=== PATIENT | male | born 1940 | race Hispanic/Latino ===

== ENCOUNTER 2021-06-20 21:04 | Inpatient (IN) | payer MEDICARE ==
[2021-06-20 22:05] VITALS: BMI 30.6
[2021-06-20] MEDS ORDERED: Dextrose 50% Abboject 50 ML SYRINGE SLOW IVP PRN (23:25)
[2021-06-20] MEDS ORDERED: Acetaminophen 325 MG TAB PO PRN (23:25)
[2021-06-20] MEDS ORDERED: HumaLOG 300 UNITS/3 ML VIAL SC PRN (23:25)
[2021-06-20] MEDS ORDERED: Ondansetron PF 4 MG/2 ML Vial IVP PRN (23:25)
[2021-06-20] MEDS ORDERED: Calcium Carbonate 500 MG ChewTAB PO PRN (23:25)
[2021-06-20] MEDS ORDERED: Dextrose 5% in Water 1,000 ML IV PRN (23:25)
[2021-06-20] MEDS ORDERED: Guaifenesin DM 100-10/5 ML UDCUP PO PRN (23:25)
[2021-06-20] MEDS ORDERED: Senokot S 8.6-50 MG TAB PO PRN (23:25)
[2021-06-20] MEDS ORDERED: Lactated Ringer's 1,000 ML IV SCH (23:30)
[2021-06-20] MEDS ORDERED: Pantoprazole 40 MG VIAL IVP SCH (23:45)
[2021-06-21 00:01] LABS: #Eosinphils 0.1 10x3/uL (0.0-0.5); #Monocytes 0.5 10x3/uL (0.0-1.1); #Neutrophils 3.7 10x3/uL (1.5-8.4); %Basophils 0.4 % (0.0-2.0); %Eosinophils 1.8 % (0.0-6.0); %Lymphocytes 22.8 % (18.0-47.0); %Monocytes 8.9 % (0.0-10.0); %Neutrophils 65.7 % (40.0-75.0); Hemoglobin 7.8 g/dL (13.5-17.5); Mean Corpuscular HGB CONC 32.5 g/dL (32.0-36.0); Mean Corpuscular Hemoglobin 29.1 pg (27.0-33.0); Mean Corpuscular Volume 89.6 fl (81.2-95.1); Mean Platelet Volume 9.5 fl (7.4-10.4); Platelet Count 160 10x3/uL (150-450); RBC Distribution Width 13.1 % (11.5-14.5); Red Blood Cell (RBC) Count 2.68 10x6/uL (4.32-5.72); White Blood Cell (WBC) Count 5.6 10x3/uL (3.5-10.5)
[2021-06-21 04:59] LABS: #Eosinphils 0.1 10x3/uL (0.0-0.5); #Monocytes 0.6 10x3/uL (0.0-1.1); #Neutrophils 3.8 10x3/uL (1.5-8.4); %Basophils 0.3 % (0.0-2.0); %Lymphocytes 26.4 % (18.0-47.0); %Monocytes 9.4 % (0.0-10.0); %Neutrophils 61.6 % (40.0-75.0); Hemoglobin 8.1 g/dL (13.5-17.5); Mean Corpuscular HGB CONC 33.1 g/dL (32.0-36.0); Mean Corpuscular Hemoglobin 29.3 pg (27.0-33.0); Mean Corpuscular Volume 88.8 fl (81.2-95.1); Mean Platelet Volume 10.4 fl (7.4-10.4); Platelet Count 171 10x3/uL (150-450); RBC Distribution Width 13.2 % (11.5-14.5); Red Blood Cell (RBC) Count 2.76 10x6/uL (4.32-5.72); White Blood Cell (WBC) Count 6.1 10x3/uL (3.5-10.5)
[2021-06-21 05:11] LABS: Anion Gap 11 mmol/L (10-20); BUN (Urea Nitrogen) 7 mg/dL (8.4-25.7); Calc. Creatinine Clearance 73 mL/min (70-130); Calcium 8.5 mg/dL (7.8-10.44); Carbon Dioxide 24 mmol/L (23-31); Chloride 109 mmol/L (98-107); Glucose 115 mg/dL (83-110); Iron 24 ug/dL (65-175); Iron Binding Capacity, Total 324 mcg/dL (261-462); Potassium 3.7 mmol/L (3.5-5.1); Sodium 140 mmol/L (136-145)
[2021-06-21 05:14] LABS: Ferritin 14.12 ng/mL (22-322)
[2021-06-21] MEDS ORDERED: Carvedilol 6.25 MG TAB PO SCH (08:00)
[2021-06-21] MEDS ORDERED: Ferrous Sulfate 325 MG TAB PO SCH (08:00)
[2021-06-21] MEDS ORDERED: Losartan 25 MG TAB PO SCH (09:00)
[2021-06-21] MEDS ORDERED: FLUoxetine HCl 20 MG CAP PO SCH (09:00)
[2021-06-21] MEDS ORDERED: Pantoprazole 40 MG VIAL IVP SCH (09:00)
[2021-06-21] MEDS ORDERED: FLU VACC QS2021-22(65YR UP)/PF 240 MCG/0.7 ML SYRINGE IM ONE (09:00)
[2021-06-21] MEDS ORDERED: Carvedilol 3.125 MG TAB PO SCH ×2 (10:15→17:00)
[2021-06-21 10:32] LABS: #Eosinphils 0.1 10x3/uL (0.0-0.5); #Monocytes 0.5 10x3/uL (0.0-1.1); #Neutrophils 3.3 10x3/uL (1.5-8.4); %Basophils 0.4 % (0.0-2.0); %Eosinophils 2.3 % (0.0-6.0); %Lymphocytes 24.7 % (18.0-47.0); %Monocytes 8.9 % (0.0-10.0); %Neutrophils 63.3 % (40.0-75.0); Hemoglobin 7.8 g/dL (13.5-17.5); Mean Corpuscular HGB CONC 32.6 g/dL (32.0-36.0); Mean Corpuscular Hemoglobin 29.1 pg (27.0-33.0); Mean Corpuscular Volume 89.2 fl (81.2-95.1); Platelet Count 156 10x3/uL (150-450); Red Blood Cell (RBC) Count 2.68 10x6/uL (4.32-5.72); White Blood Cell (WBC) Count 5.2 10x3/uL (3.5-10.5)
[2021-06-21 12:50] VITALS: BP 119/58; TEMP 98.6
[2021-06-21] MEDS ORDERED: metroNIDAZOLE 500 MG TAB PO SCH (15:00)
[2021-06-21] MEDS ORDERED: Atorvastatin Calcium 20 MG TAB PO SCH (21:00)
[2021-06-21] MEDS ORDERED: Tamsulosin HCl 0.4 MG CAP PO SCH (21:00)
[2021-06-21] MEDS ORDERED: Gabapentin 300 MG CAP PO SCH (21:00)
== END 2021-06-21 17:25 | disposition home or self-care (01) | DRG 378 ==
LOC: CSHTELE 21:04
PROVIDERS: ADMIT Internal Medicine; ATTEND Family Medicine
DX: K57.93 Diverticulitis of intestine, part unspecified, without perforation or abscess with bleeding (principal); D62 Acute posthemorrhagic anemia; F03.90 Unspecified dementia, unspecified severity, without behavioral disturbance, psychotic disturbance, mood disturbance, and anxiety; Z20.822 Contact with and (suspected) exposure to COVID-19; E11.22 Type 2 diabetes mellitus with diabetic chronic kidney disease; I10 Essential (primary) hypertension; E78.5 Hyperlipidemia, unspecified; E11.65 Type 2 diabetes mellitus with hyperglycemia; N18.2 Chronic kidney disease, stage 2 (mild); E86.0 Dehydration; Z79.899 Other long term (current) drug therapy; Z87.891 Personal history of nicotine dependence
CPT/HCPCS: 36415; 36416; 80048; 82607; 82728; 82746; 83540; 83550; 85025; 93005; 93010; C9113; J1815; J7120

== ENCOUNTER 2021-11-29 22:33 | Emergency (ER) | payer MEDICARE, OTHER ==
[2021-11-29 23:12] LABS: #Eosinphils 0.1 10x3/uL (0.0-0.5); #Monocytes 0.5 10x3/uL (0.0-1.1); #Neutrophils 3.7 10x3/uL (1.5-8.4); %Basophils 0.3 % (0.0-2.0); %Eosinophils 1.7 % (0.0-6.0); %Lymphocytes 24.3 % (18.0-47.0); %Monocytes 9.2 % (0.0-10.0); %Neutrophils 64.2 % (40.0-75.0); Hemoglobin 9.9 g/dL (13.5-17.5); Mean Corpuscular HGB CONC 30.2 g/dL (32.0-36.0); Mean Corpuscular Volume 79.6 fl (81.2-95.1); Mean Platelet Volume 9.6 fl (7.4-10.4); Platelet Count 157 10x3/uL (150-450); RBC Distribution Width 17.4 % (11.5-14.5); Red Blood Cell (RBC) Count 4.12 10x6/uL (4.32-5.72); White Blood Cell (WBC) Count 5.8 10x3/uL (3.5-10.5)
[2021-11-29 23:23] LABS: ALT (SGPT) 14 U/L (8-55); AST (SGOT) 12 U/L (5-34); Albumin 3.9 g/dL (3.4-4.8); Alkaline Phosphatase 120 U/L (40-110); Anion Gap 14 mmol/L (10-20); BUN (Urea Nitrogen) 17 mg/dL (8.4-25.7); Bilirubin, Total 0.2 mg/dL (0.2-1.2); Calc. Creatinine Clearance 0 mL/min (70-130); Calcium 9.1 mg/dL (7.8-10.44); Carbon Dioxide 23 mmol/L (23-31); Chloride 103 mmol/L (98-107); Estimated GFR 47; Globulin 3.4 g/dL (2.4-3.5); Glucose 178 mg/dL (83-110); Potassium 4.2 mmol/L (3.5-5.1); Protein, Total 7.3 g/dL (5.8-8.1); Sodium 136 mmol/L (136-145)
== END 2021-11-29 23:52 | disposition home or self-care (01) ==
LOC: CSHERS 22:33
DX: R07.9 Chest pain, unspecified (principal); E11.9 Type 2 diabetes mellitus without complications; E78.5 Hyperlipidemia, unspecified; E78.00 Pure hypercholesterolemia, unspecified; I10 Essential (primary) hypertension; Z86.73 Personal history of transient ischemic attack (TIA), and cerebral infarction without residual deficits; K21.9 Gastro-esophageal reflux disease without esophagitis; Z87.891 Personal history of nicotine dependence; Z79.899 Other long term (current) drug therapy; Z79.84 Long term (current) use of oral hypoglycemic drugs; Z79.82 Long term (current) use of aspirin
CPT/HCPCS: 36415; 71045; 80053; 84484; 85025; 93005

== ENCOUNTER 2023-03-04 16:41 | Inpatient (IN) | payer MEDICARE, OTHER ==
[2023-03-04] MEDS ORDERED: Morphine 4 MG/ML VIAL ONE (17:57)
[2023-03-04] MEDS ORDERED: Ondansetron PF 4 MG/2 ML Vial ONE (17:58)
[2023-03-04 18:01] LABS: #Monocytes 0.9 10x3/uL (0.0-1.1); #Neutrophils 8.3 10x3/uL (1.5-8.4); %Basophils 0.2 % (0.0-2.0); %Eosinophils 0.2 % (0.0-6.0); %Monocytes 9.4 % (0.0-10.0); %Neutrophils 84.8 % (40.0-75.0); Hematocrit 46.4 % (38.8-50.0); Hemoglobin 15.3 g/dL (13.5-17.5); Mean Corpuscular Hemoglobin 28.4 pg (27.0-33.0); Mean Corpuscular Volume 86.1 fl (81.2-95.1); Mean Platelet Volume 11.1 fl (7.4-10.4); Platelet Count 163 10x3/uL (150-450); RBC Distribution Width 15.8 % (11.5-14.5); Red Blood Cell (RBC) Count 5.39 10x6/uL (4.32-5.72); White Blood Cell (WBC) Count 9.8 10x3/uL (3.5-10.5)
[2023-03-04 18:14] LABS: ALT (SGPT) 23 U/L (8-55); AST (SGOT) 23 U/L (5-34); Albumin 4.8 g/dL (3.4-4.8); Alkaline Phosphatase 103 U/L (40-110); Anion Gap 17 mmol/L (10-20); BUN (Urea Nitrogen) 38 mg/dL (8.4-25.7); Bilirubin, Total 0.4 mg/dL (0.2-1.2); Calc. Creatinine Clearance 0 mL/min (70-130); Calcium 8.7 mg/dL (7.8-10.44); Carbon Dioxide 13 mmol/L (23-31); Chloride 108 mmol/L (98-107); Estimated GFR 21; Globulin 3.5 g/dL (2.4-3.5); Glucose 191 mg/dL (83-110); Lipase 17 U/L (8-78); Magnesium 1.9 mg/dL (1.6-2.6); Potassium 4.3 mmol/L (3.5-5.1); Protein, Total 8.3 g/dL (5.8-8.1); Sodium 134 mmol/L (136-145)
[2023-03-04 18:20] LABS: Troponin I 0.014 ng/mL (< 0.028)
[2023-03-04] MEDS ORDERED: HumaLOG 300 UNITS/3 ML VIAL SC PRN (20:25)
[2023-03-04] MEDS ORDERED: Dextrose 5% in Water 1,000 ML IV PRN (20:25)
[2023-03-04] MEDS ORDERED: Dextrose 50% Abboject 50 ML SYRINGE SLOW IVP PRN (20:25)
[2023-03-04] MEDS ORDERED: Glucagon 1 MG/ML KIT IM PRN (20:25)
[2023-03-04] MEDS: Sodium Chloride 0.9% 1,000 ML IV SCH (22:44)
[2023-03-04] MEDS: Gabapentin 300 MG CAP PO SCH (22:45)
[2023-03-04 23:37] VITALS: BMI 27.1
[2023-03-04] MEDS ORDERED: Ondansetron PF 4 MG/2 ML Vial IVP SCH (23:45)
[2023-03-05] MEDS ORDERED: QUEtiapine 25 MG TAB PO SCH (03:00)
[2023-03-05 04:08] LABS: #Monocytes 0.8 10x3/uL (0.0-1.1); %Basophils 0.2 % (0.0-2.0); %Eosinophils 0.2 % (0.0-6.0); %Lymphocytes 5.8 % (18.0-47.0); %Monocytes 8.3 % (0.0-10.0); %Neutrophils 84.6 % (40.0-75.0); Hematocrit 41.6 % (38.8-50.0); Hemoglobin 13.6 g/dL (13.5-17.5); Mean Corpuscular HGB CONC 32.7 g/dL (32.0-36.0); Mean Corpuscular Hemoglobin 28.3 pg (27.0-33.0); Mean Corpuscular Volume 86.5 fl (81.2-95.1); Mean Platelet Volume 10.5 fl (7.4-10.4); Platelet Count 136 10x3/uL (150-450); RBC Distribution Width 15.9 % (11.5-14.5); Red Blood Cell (RBC) Count 4.81 10x6/uL (4.32-5.72); White Blood Cell (WBC) Count 9.4 10x3/uL (3.5-10.5)
[2023-03-05 04:18] LABS: Anion Gap 14 mmol/L (10-20); BUN (Urea Nitrogen) 37 mg/dL (8.4-25.7); Calc. Creatinine Clearance 32 mL/min (70-130); Calcium 8.3 mg/dL (7.8-10.44); Carbon Dioxide 16 mmol/L (23-31); Chloride 112 mmol/L (98-107); Estimated GFR 34; Glucose 172 mg/dL (83-110); Magnesium 1.8 mg/dL (1.6-2.6); Sodium 138 mmol/L (136-145)
[2023-03-05] MEDS: Sodium Chloride 0.9% 1,000 ML IV SCH ×3 (06:37→21:01)
[2023-03-05] MEDS ORDERED: metFORMIN 500 MG TAB PO SCH (09:00)
[2023-03-05] MEDS ORDERED: FLU VACC QS2023(65UP)/MF59C/PF 60 MCG/0.5 ML SYRINGE IM ONE (09:00)
[2023-03-05 09:54] LABS: Bilirubin Neg (Negative); Blood, Urine Negative (Negative); Clarity Clear (Clear); Glucose, Urine (Dipstick) 100 mg/dL (Negative); Ketone, Urine Negative (Negative); Leukocyte Negative (Negative); Nitrite Negative (Negative); Protein, Urine (Dipstick) 30 mg/dl (Neg-Trace); Urobilinogen Normal mg/dL (Less than 2)
[2023-03-05] MEDS: FLUoxetine HCl 20 MG CAP PO SCH (09:59)
[2023-03-05] MEDS: Losartan 25 MG TAB PO SCH (09:59)
[2023-03-05] MEDS: Aspirin Chewable 81 MG TAB PO SCH (09:59)
[2023-03-05] MEDS: Atorvastatin Calcium 40 MG TAB PO SCH (09:59)
[2023-03-05] MEDS: Carvedilol 3.125 MG TAB PO SCH ×2 (09:59→17:00)
[2023-03-05] MEDS: Cholecalciferol 1,000 UNITS (25 MCG) TAB PO SCH (10:00)
[2023-03-05 10:01] LABS: Bacteria/HPF 1+ HPF (None Seen); CAUTI Indications for Culture Pelvic or flank pain; RBC/HPF None Seen HPF (0-3); Squamous Epithelial 0-3 HPF (0-3); WBC/HPF 0-3 HPF (0-3)
[2023-03-05 10:02] LABS: Urine Culture Reflex No No
[2023-03-05] MEDS: Gabapentin 300 MG CAP PO SCH (20:59)
[2023-03-05] MEDS ORDERED: Loperamide HCl 2 MG CAP PO SCH (22:15)
[2023-03-06] MEDS: Carvedilol 3.125 MG TAB PO SCH (08:12)
[2023-03-06 09:00] LABS: #Monocytes 0.5 10x3/uL (0.0-1.1); #Neutrophils 5.1 10x3/uL (1.5-8.4); %Basophils 0.2 % (0.0-2.0); %Eosinophils 0.5 % (0.0-6.0); %Lymphocytes 10.2 % (18.0-47.0); %Monocytes 8.3 % (0.0-10.0); %Neutrophils 80.5 % (40.0-75.0); Hematocrit 40.7 % (38.8-50.0); Hemoglobin 13.2 g/dL (13.5-17.5); Mean Corpuscular HGB CONC 32.4 g/dL (32.0-36.0); Mean Corpuscular Hemoglobin 28.4 pg (27.0-33.0); Mean Corpuscular Volume 87.7 fl (81.2-95.1); Mean Platelet Volume 10.7 fl (7.4-10.4); Platelet Count 122 10x3/uL (150-450); Red Blood Cell (RBC) Count 4.64 10x6/uL (4.32-5.72); White Blood Cell (WBC) Count 6.3 10x3/uL (3.5-10.5)
[2023-03-06 09:48] LABS: Anion Gap 11 mmol/L (10-20); BUN (Urea Nitrogen) 27 mg/dL (8.4-25.7); Calc. Creatinine Clearance 52 mL/min (70-130); Calcium 8.5 mg/dL (7.8-10.44); Carbon Dioxide 14 mmol/L (23-31); Chloride 114 mmol/L (98-107); Estimated GFR 61; Glucose 127 mg/dL (83-110); Potassium 3.7 mmol/L (3.5-5.1); Sodium 135 mmol/L (136-145)
[2023-03-06] MEDS: Atorvastatin Calcium 40 MG TAB PO SCH (10:21)
[2023-03-06] MEDS: Aspirin Chewable 81 MG TAB PO SCH (10:21)
[2023-03-06] MEDS: Losartan 25 MG TAB PO SCH (10:22)
[2023-03-06] MEDS: FLUoxetine HCl 20 MG CAP PO SCH (10:22)
[2023-03-06] MEDS: Cholecalciferol 1,000 UNITS (25 MCG) TAB PO SCH (10:22)
[2023-03-06 12:46] VITALS: BP 107/63; TEMP 98.1
== END 2023-03-06 14:00 | disposition home or self-care (01) | DRG 683 ==
LOC: CSHERS 16:41 → CSHTELE 19:42 → OBSVTOIN 03-05 15:52
PROVIDERS: ADMIT Family Medicine; ATTEND Hospitalist
DX: N17.9 Acute kidney failure, unspecified (principal); E87.20 Acidosis, unspecified; F03.90 Unspecified dementia, unspecified severity, without behavioral disturbance, psychotic disturbance, mood disturbance, and anxiety; N26.1 Atrophy of kidney (terminal); I10 Essential (primary) hypertension; E11.40 Type 2 diabetes mellitus with diabetic neuropathy, unspecified; E78.5 Hyperlipidemia, unspecified; Z88.0 Allergy status to penicillin; Z79.899 Other long term (current) drug therapy; Z79.82 Long term (current) use of aspirin; Z87.891 Personal history of nicotine dependence; Z80.3 Family history of malignant neoplasm of breast; Z82.49 Family history of ischemic heart disease and other diseases of the circulatory system; Z83.3 Family history of diabetes mellitus
CPT/HCPCS: 36415; 36416; 74176; 80048; 80053; 81001; 83690; 83735; 84484; 85025; 93005; J1650; J1815; J2270; J2405; J7050

== ENCOUNTER 2023-08-26 16:24 | Observation (INO) | payer OTHER ==
[2023-08-26 17:13] LABS: ALT (SGPT) 23 U/L (8-55); AST (SGOT) 20 U/L (5-34); Albumin 3.7 g/dL (3.4-4.8); Alkaline Phosphatase 111 U/L (40-110); Anion Gap 10 mmol/L (10-20); BUN (Urea Nitrogen) 19 mg/dL (8.4-25.7); Bilirubin, Total 0.3 mg/dL (0.2-1.2); Calc. Creatinine Clearance 0 mL/min (70-130); Carbon Dioxide 25 mmol/L (23-31); Chloride 105 mmol/L (98-107); Estimated GFR 65; Globulin 3.5 g/dL (2.4-3.5); Glucose 143 mg/dL (83-110); Protein, Total 7.2 g/dL (5.8-8.1); Sodium 136 mmol/L (136-145)
[2023-08-26 17:15] LABS: #Basophils 0.02 10x3/uL (0.0-0.2); #Eosinphils 0.09 10x3/uL (0.0-0.5); #Monocytes 0.64 10x3/uL (0.0-1.1); #Neutrophils 4.04 10x3/uL (1.5-8.4); %Basophils 0.3 % (0.0-2.0); %Eosinophils 1.4 % (0.0-6.0); %Lymphocytes 24.3 % (18.0-47.0); %Monocytes 10.1 % (0.0-10.0); %Neutrophils 63.6 % (40.0-75.0); Hemoglobin 12.5 g/dL (13.5-17.5); Mean Corpuscular HGB CONC 33.8 g/dL (32.0-36.0); Mean Corpuscular Hemoglobin 30.2 pg (27.0-33.0); Mean Corpuscular Volume 89.4 fl (81.2-95.1); Mean Platelet Volume 10.8 fl (7.4-10.4); Platelet Count 146 10x3/uL (150-450); RBC Distribution Width 13.8 % (11.5-14.5); Red Blood Cell (RBC) Count 4.14 10x6/uL (4.32-5.72); White Blood Cell (WBC) Count 6.4 10x3/uL (3.5-10.5)
[2023-08-26 18:12] LABS: Bilirubin Neg (Negative); Blood, Urine Negative (Negative); Clarity Clear (Clear); Glucose, Urine (Dipstick) 100 mg/dL (Negative); Ketone, Urine Negative (Negative); Leukocyte Negative (Negative); Nitrite Negative (Negative); Protein, Urine (Dipstick) 15 mg/dl (Neg-Trace); Urobilinogen Normal mg/dL (Less than 2)
[2023-08-26] MEDS ORDERED: Aspirin 325 MG TAB ONE (18:13)
[2023-08-26 18:29] LABS: Bacteria/HPF Rare-Few HPF (None Seen); CAUTI Indications for Culture Alt mental st,lethar; RBC/HPF 0-3 HPF (0-3); Squamous Epithelial None Seen HPF (0-3); WBC/HPF 0-3 HPF (0-3)
[2023-08-26 18:30] LABS: Urine Culture Reflex No No
[2023-08-26 20:56] VITALS: BMI 29.9
[2023-08-26] MEDS ORDERED: Ondansetron PF 4 MG/2 ML Vial IVP PRN (21:54)
[2023-08-26] MEDS ORDERED: Acetaminophen 325 MG TAB PO PRN (21:54)
[2023-08-26] MEDS ORDERED: Calcium Carbonate 500 MG ChewTAB PO PRN (21:54)
[2023-08-26] MEDS ORDERED: Senokot S 8.6-50 MG TAB PO PRN (21:54)
[2023-08-27] MEDS: QUEtiapine 25 MG TAB PO SCH (01:02)
[2023-08-27] MEDS: Cholecalciferol 1,000 UNITS (25 MCG) TAB PO SCH ×2 (02:07→09:14)
[2023-08-27 05:44] LABS: Cardiac Risk 3.6 (Less than 4.5)
[2023-08-27] MEDS ORDERED: Cholecalciferol 1,000 UNITS (25 MCG) TAB PO SCH (09:00)
[2023-08-27] MEDS ORDERED: FLU VACC QS2023(65UP)/MF59C/PF 60 MCG/0.5 ML SYRINGE IM ONE (09:00)
[2023-08-27] MEDS: Memantine 10 MG TAB PO SCH (09:14)
[2023-08-27] MEDS: FLUoxetine HCl 20 MG CAP PO SCH (09:14)
[2023-08-27] MEDS: Aspirin 81 mg Enteric Coated Tablet PO SCH (09:14)
[2023-08-27] MEDS: metFORMIN 500 MG TAB PO SCH (09:15)
[2023-08-27] MEDS: Clopidogrel Bisulfate 75 MG TAB PO SCH (09:15)
[2023-08-27] MEDS: Atorvastatin Calcium 40 MG TAB PO SCH (09:15)
[2023-08-27] MEDS: Enoxaparin 40 MG (0.4 mL) SYRINGE SC SCH (09:16)
[2023-08-27 12:52] VITALS: TEMP 98.3
[2023-08-27 14:35] LABS: Hemoglobin A1c 7.1 % (4.0-6.0)
[2023-08-27 15:37] VITALS: BP 146/68
[2023-08-27] MEDS ORDERED: Gabapentin 300 MG CAP PO SCH (21:00)
[2023-08-27] MEDS ORDERED: QUEtiapine 25 MG TAB PO SCH (21:00)
== END 2023-08-27 17:30 | disposition home or self-care (01) ==
LOC: CSHERS 16:24 → INTOOBSV 17:07 → CSHTELE 17:07
PROVIDERS: ADMIT Family Medicine; ATTEND Family Medicine
PROC: B246ZZZ Ultrasonography of Right and Left Heart (ICD-10-PCS; principal; 2023-08-26)
DX: I63.9 Cerebral infarction, unspecified (principal); I12.9 Hypertensive chronic kidney disease with stage 1 through stage 4 chronic kidney disease, or unspecified chronic kidney disease; N18.2 Chronic kidney disease, stage 2 (mild); E11.22 Type 2 diabetes mellitus with diabetic chronic kidney disease; E11.40 Type 2 diabetes mellitus with diabetic neuropathy, unspecified; F03.90 Unspecified dementia, unspecified severity, without behavioral disturbance, psychotic disturbance, mood disturbance, and anxiety; E78.5 Hyperlipidemia, unspecified; N40.0 Benign prostatic hyperplasia without lower urinary tract symptoms; K21.9 Gastro-esophageal reflux disease without esophagitis; Z79.82 Long term (current) use of aspirin; Z79.899 Other long term (current) drug therapy; Z79.84 Long term (current) use of oral hypoglycemic drugs; Z88.0 Allergy status to penicillin; Z86.73 Personal history of transient ischemic attack (TIA), and cerebral infarction without residual deficits; Z87.891 Personal history of nicotine dependence; R41.3 Other amnesia
CPT/HCPCS: 70553; 71045; 80053; 80061; 81001; 82962 ×2; 83036; 84443; 85025; 93005; 93306; 93880; 96372; 97535; 99285; G0378 ×2; 36416; A9579; J1650